=== PATIENT | male | born 1990 | race Caucasian/White ===

== ENCOUNTER 2017-10-13 11:45 | Emergency (ER) | payer BC ==
[2017-10-13 12:15] VITALS: BP 141/94
--- NOTE | 2017-10-13 12:28 | UC ---
Throat Pain/Nasal Feliciano HPI - HPI Summary HPI Summary: Pt presents with feeling feverish, dry cough, and sore throat for the last 4 days. Says today is feeling better than the past 4 days, but still wanted to get checked out. Has not been taking anything OTC for his symptoms. Denies sinus symptoms, SOB, chest pain, abdominal pain, n/v/d/c. Still smoking daily. - History of Current Complaint Chief Complaint: UCRespiratory Stated Complaint: URI Time Seen by Provider: 10/13/17 12:27 Hx Obtained From: Patient Onset/Duration: Gradual Onset Severity: Mild Pain Intensity: 1 Pain Scale Used: 0-10 Numeric Cough: Nonproductive - Allergies/Home Medications Allergies/Adverse Reactions: Allergies Allergy/AdvReac Type Severity Reaction Status Date / Time ENVIRONMENTAL/SEASONAL Allergy CONGESTION, Uncoded 10/13/17 12:15 HAYFEVER SNEEZE, ITCHY EYES, SWELLING OF THROAT PMH/Surg Hx/FS Hx/Imm Hx Previously Healthy: Yes GI/ History: Gastroesophageal Reflux Psychological History: Anxiety, Depression Other History Of: Negative For: Anticoagulant Therapy - Surgical History Surgical History: Yes Surgery Procedure, Year, and Place: 2009 LEFT KNEE ARTHROSCOPIC SURGERY, [facility] – [place]. 2009 & 2013 EGD, [facility] [place] - Family History Known Family History: Positive: Other - allergies in his dad; no hx of migraine - Social History Occupation: Employed Full-time Lives: With Family Alcohol Use: Weekly Substance Use Type: Marijuana Substance Use Comment - Amount & Last Used: MARIJUANA DAILY Smoking Status (MU): Heavy Every Day Tobacco Smoker Type: Cigars Amount Used/How Often: EVERY OTHER DAY A CIGAR, cigarettes w/ drinking ETOH at times Length of Time of Smoking/Using Tobacco: 6 YEARS Have You Smoked in the Last Year: Yes When Did the Patient Quit Smoking/Using Tobacco: may 2015 Household Exposure Type: Cigarettes - Immunization History Most Recent Influenza Vaccination: never Most Recent Tetanus Shot: 2009 Review of Systems Constitutional: Fever Skin: Negative Eyes: Negative ENT: Sore Throat Respiratory: Cough Cardiovascular: Negative Gastrointestinal: Negative Musculoskeletal: Negative Neurological: Negative Psychological: Negative All Other Systems Reviewed And Are Negative: Yes Physical Exam - Summary Physical Exam Summary: GENERAL: NAD. WDWN. No pain distress. SKIN: No rashes, sores, ulcers, masses, lesions. HEENT: Head: AT/NC Eyes: Conjunctiva clear without inflammation or discharge. Ears: Hearing grossly normal. TMs intact, no bulging, erythema, or edema. Nose: Nasal mucosa pink and moist. NTTP maxillary and frontal sinus. Throat: Posterior oropharynx mild erythema. No tonsillar enlargement. No exudates. Uvula midline. No hoarse voice or muffled voice. NECK: Supple. Nontender. No lymphadenopathy. CHEST: Mild wheezing throughout. No r/r. No accessory muscle use. Breathing comfortably and in no distress. CV: RRR. Without m/r/g. Pulses intact. Brisk cap refill. NEURO: Alert. CN II-XII grossly intact. PSYCH: Age appropriate behavior. Triage Information Reviewed: Yes Vital Signs: Initial Vital Signs Temp 98.5 F 10/13/17 12:11 Pulse 75 10/13/17 12:11 Resp 18 10/13/17 12:11 BP 141/94 10/13/17 12:11 Pulse Ox 98 10/13/17 12:11 Throat Pain/Nasal Course/Dx - Course Course Of Treatment: POC influenza negative. Pt refused strep testing saying that he has had strep many times in the past and knows that this is "not strep" . Pharyngitis and bronchitis - albuterol and tessalon. - Differential Dx/Diagnosis Provider Diagnoses: Pharyngitis. Bronchitis Discharge - Discharge Plan Condition: Stable Disposition: HOME Prescriptions: Albuterol HFA INHALER* [Ventolin HFA Inhaler*] 1 - 2 puff INH Q6H PRN #1 mdi PRN Reason: Sob/Wheezing Benzonatate CAP* [Tessalon 100 MG CAP*] 100 mg PO TID PRN #15 cap PRN Reason: Cough Patient Education Materials: Acute Bronchitis (ED) Referrals: No Primary Care Phys,NOPCP [Primary Care Provider] - Additional Instructions: If you develop a fever, shortness of breath, chest pain, new or worsening symptoms - please call your PCP or go to the ED. Your blood pressure was high at todays visit. Please see your primary provider within 4 weeks for recheck and re-evaluation.
== END 2017-10-13 12:36 | disposition home or self-care (01) ==
LOC: UCEAST 11:45
DX: J02.9 Acute pharyngitis, unspecified (principal); J40 Bronchitis, not specified as acute or chronic; K21.9 Gastro-esophageal reflux disease without esophagitis; F41.9 Anxiety disorder, unspecified; F32.9 Major depressive disorder, single episode, unspecified; F17.290 Nicotine dependence, other tobacco product, uncomplicated
CPT/HCPCS: 87502; 99212; G0463

== ENCOUNTER 2018-06-10 13:20 | Emergency (ER) | payer BC ==
[2018-06-10] MEDS ORDERED: NS 0.9% 1000 ML* 1,000 ML IV ONE ×2 (13:44→14:10)
[2018-06-10] MEDS ORDERED: Al Hydrox/Mg Hydrox/Simet LIQ* 30 ML UDC PO ONE (14:10)
[2018-06-10] MEDS ORDERED: Lidocaine 2% VISCOUS* 15 ML UDC PO ONE (14:10)
--- NOTE | 2018-06-10 14:19 | ED ---
Abdominal Pain/Male - HPI Summary HPI Summary: This patient is a 27 year old M presenting to [facility] with a chief complaint of severe lower abd pain accompanied by lower back pain since two nights ago. The patient rates the pain 5/10 in severity. Patient reports fever, diaphoresis, weak, dizzy, lightheaded, and N/V/D. Patient denies bloody stool. Pt has not been on antibiotics recently. Pt reports that he has had about 15 episodes of diarrhea. PMHX GERD, Anxiety. SHX insurance executive. - History of Current Complaint Chief Complaint: EDAbdPain Stated Complaint: SEVERE ABD PAIN Time Seen by Provider: 06/10/18 13:41 Hx Obtained From: Patient Onset/Duration: Sudden Onset, Lasting Days Timing: Constant Severity Initially: Moderate Severity Currently: Moderate Pain Intensity: 5 Pain Scale Used: 0-10 Numeric Location: Epigastric Radiates: Yes Radiates to: Back - lower Alleviating Factor(s): Bowel Movement - temporary Associated Signs And Symptoms: Positive: Diaphoresis, Fever, Dizzy, Back Pain, Nausea, Vomiting, Diarrhea. Negative: Cough - Allergies/Home Medications Allergies/Adverse Reactions: Allergies Allergy/AdvReac Type Severity Reaction Status Date / Time ENVIRONMENTAL/SEASONAL Allergy CONGESTION, Uncoded 10/13/17 12:15 HAYFEVER SNEEZE, ITCHY EYES, SWELLING OF THROAT PMH/Surg Hx/FS Hx/Imm Hx Endocrine/Hematology History: Denies: Hx Anticoagulant Therapy, Hx Blood Disorders Cardiovascular History: Reports: Hx Hypertension - SLIGHTLY HIGH NO MEDS GI History: Reports: Hx Gastroesophageal Reflux Disease - ACID REFLUX CONTROL WITH MEDS - omeprazole Sensory History: Denies: Hx Contacts or Glasses, Hx Hearing Aid Opthamlomology History: Denies: Hx Contacts or Glasses Neurological History: Reports: Hx Headaches - 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 2013 [place], [facility] [place] Hx Anesthesia Reactions: No Infectious Disease History: No Infectious Disease History: Denies: Hx Clostridium Difficile, Hx of Known/Suspected MRSA, Hx Shingles, Hx Tuberculosis, Hx Known/Suspected VRE, Hx Known/Suspected VRSA, History Other Infectious Disease, Traveled Outside the [place] in Last 30 Days - Family History Known Family History: Positive: Other - allergies in his dad; no hx of migraine - Social History Occupation: Employed Full-time - insurance executive Alcohol Use: Weekly Substance Use Type: Reports: Marijuana Substance Use Comment - Amount & Last Used: MARIJUANA DAILY Smoking Status (MU): Heavy Every Day Tobacco Smoker Type: Cigars Amount Used/How Often: EVERY OTHER DAY A CIGAR, cigarettes w/ drinking ETOH at times Length of Time of Smoking/Using Tobacco: 6 YEARS Have You Smoked in the Last Year: Yes Review of Systems Positive: Fever, Skin Diaphoresis Positive: Abdominal Pain, Vomiting, Diarrhea, Nausea Negative: other - bloody stool Musculoskeletal: Other - lower back pain Neurological: Other - dizzy Positive: Weakness All Other Systems Reviewed And Are Negative: Yes Physical Exam - Summary Physical Exam Summary: Constitutional: Well-developed, Well-nourished, Alert. Skin: Warm, Dry HENT: Normocephalic; Atraumatic Eyes: Conjunctiva normal Neck: Musculoskeletal ROM normal neck. Cardio: Rhythm regular, rate normal, Heart sounds normal; Intact distal pulses; The pedal pulses are 2+ and symmetric. Radial pulses are 2+ and symmetric. Pulmonary/Chest wall: Effort normal. Abd: Soft Neuro: Alert, Oriented x3 Psych: Mood and affect Normal Triage Information Reviewed: Yes Vital Signs On Initial Exam: Initial Vitals Temp Pulse Resp BP Pulse Ox 98.1 F 105 18 150/81 96 06/10/18 13:25 06/10/18 13:25 06/10/18 13:25 06/10/18 13:25 06/10/18 13:25 Vital Signs Reviewed: Yes Diagnostics - Vital Signs Vital Signs Temp Pulse Resp BP Pulse Ox 06/10/18 13:25 98.1 F 105 18 150/81 96 - Laboratory Result Diagrams: 06/10/18 13:59 06/10/18 13:59 Lab Statement: Any lab studies that have been ordered have been reviewed, and results considered in the medical decision making process. Re-Evaluation - Re-Evaluation First Eval Re-Evaluation Time: 14:49 Comment: There is still mild RLQ tenderness so I am going to order a CT. Abdominal Pain Fem Course/Dx - Course Course Of Treatment: This patient is a 27 year old M presenting to [facility] with a chief complaint of severe lower abd pain accompanied by lower back pain since two nights ago. The patient rates the pain 5/10 in severity. Patient reports fever, diaphoresis, weak, dizzy, lightheaded, and N/V/D. Patient denies bloody stool. - Diagnoses Provider Diagnoses: Colitis Discharge - Sign-Out/Discharge Documenting (check all that apply): Patient Departure - Discharge Plan Condition: Critical Disposition: HOME Prescriptions: Ciprofloxacin TAB* [Cipro 500 MG TAB*] 500 mg PO BID #28 tab metroNIDAZOLE [Flagyl 500 MG TAB] 500 mg PO TID #42 tab Ondansetron ODT TAB* [Zofran 4 MG Odt TAB*] 4 mg PO Q8H PRN #12 tab.odt PRN Reason: Nausea oxyCODONE/Acetamin 5/325 MG* [Percocet 5/325 TAB*] 2 tab PO Q6H PRN #32 tab MDD 8 PRN Reason: Pain Scale 6-10 Patient Education Materials: Colitis (ED) Forms: *Work Release Referrals: Sessions Alaina TRUJILLO [Medical Doctor] - 2 Days - Billing Disposition and Condition Condition: CRITICAL Disposition: Home - Attestation Statements Document Initiated by Scribe: Yes Documenting Scribe: Krishna Orourke Provider For Whom Scribe is Documenting (Include Credential): Reed Salcedo MD Scribe Attestation: Krishna Lopez scribed for Reed Salcedo MD on 06/10/18 at 1744. Scribe Documentation Reviewed: Yes Provider Attestation: The documentation as recorded by the Krishna lindo accurately reflects the service I personally performed and the decisions made by , Reed Salcedo MD
[2018-06-10 14:21] LABS: Hematocrit 46 % (42-52); Hemoglobin 15.5 g/dl (14.0-18.0); Mean Corpuscular HGB Conc 34 g/dl (31-36); Mean Corpuscular Hemoglobin 29 pg (27-31); Mean Corpuscular Volume 86 fL (80-94); Mean Platelet Volume 9.1 fL (7.4-10.4); Platelet Count 203 10^3/ul (150-450); Red Blood Count 5.36 10^6/ul (4.00-5.40); Red Cell Distribution Width 14 % (10.5-15); White Blood Count 15.3 10^3/ul (3.5-10.8)
[2018-06-10 14:32] LABS: EGFR Non-African American 106.1 (>60)
[2018-06-10 15:34] LABS: Urine Appearance Clear; Urine Blood 2+ (Negative); Urine Color Yellow; Urine Ketones Negative (Negative); Urine Protein Negative (Negative); Urine Red Blood Cell Trace(0-2/hpf) (Absent); Urine Specific Gravity 1.009 (1.010-1.030); Urine Urobilinogen Negative (Negative); Urine White Blood Cell Trace(0-5/hpf) (Absent)
[2018-06-10 16:05] LABS: ABS Basophils 0 10^3/ul (0-0.2); ABS Eosinophils 0 10^3/ul (0-0.6); ABS Lymphocytes 0.9 10^3/ul (1.0-4.8); ABS Monocytes 1.2 10^3/ul (0-0.8); ABS Neutrophils 12.8 10^3/ul (1.5-7.7); ABS Nucleated RBC 0 10^3/ul; Eosinophil % 0.1 % (0-6); Lymphocyte % 6.4 % (25-47); Nucleated Red Blood Cells % 0
[2018-06-10] MEDS ORDERED: Iohexol 300* (CONTRAST) 10 ML SDV IV ONE (16:41)
[2018-06-10 18:09] VITALS: BP 138/72
--- NOTE | 2018-06-12 18:56 | ED ---
Progress - Progress Note Progress Note: Patient's final stool culture reveals campylobacter jejuni. Patient was started on ciprofloxacin 500 mg twice a day along with Flagyl 500 mg 3 times a day. Recommendation for Campylobacter treatment is ciprofloxacin 750 mg twice a day for 3 days or until symptoms resolve. Discussed with patient who agrees to cut his 500 mg pills in half to equal 750 mg per dose and will take these BID until follow-up with PCP this week or until symptoms resolve. He does agree to keep his follow-up with PCP this week. He is also aware of danger signs and symptoms of when to return the emergency department. He does report his abdominal pain diarrhea and appetite are all improving since starting his medications. He will also stop the Flagyl as this is not recommended for this infection. Furthermore upon investigating his history of illness, he admits he did [place] prior to getting this infection and this is most likely where he sustained this organism. Re-Evaluation - Re-Evaluation First Eval Re-Evaluation Time: 14:49 Comment: There is still mild RLQ tenderness so I am going to order a CT. Course/Dx - Course Course Of Treatment: This patient is a 27 year old M presenting to [facility] with a chief complaint of severe lower abd pain accompanied by lower back pain since two nights ago. The patient rates the pain 5/10 in severity. Patient reports fever, diaphoresis, weak, dizzy, lightheaded, and N/V/D. Patient denies bloody stool. - Diagnoses Provider Diagnoses: Colitis Discharge - Sign-Out/Discharge Documenting (check all that apply): Post-Discharge Follow Up - Discharge Plan Condition: Critical Disposition: HOME Prescriptions: Ciprofloxacin TAB* [Cipro 500 MG TAB*] 500 mg PO BID #28 tab Ondansetron ODT TAB* [Zofran 4 MG Odt TAB*] 4 mg PO Q8H PRN #12 tab.odt PRN Reason: Nausea oxyCODONE/Acetamin 5/325 MG* [Percocet 5/325 TAB*] 2 tab PO Q6H PRN #32 tab MDD 8 PRN Reason: Pain Scale 6-10 Patient Education Materials: Colitis (ED) Forms: *Work Release Referrals: Sessions Alaina TRUJILLO [Medical Doctor] - 2 Days - Billing Disposition and Condition Condition: CRITICAL Disposition: Home
== END 2018-06-10 18:09 | disposition home or self-care (01) ==
LOC: ED 13:20
DX: K52.9 Noninfective gastroenteritis and colitis, unspecified (principal); M54.5 Low back pain; R42 Dizziness and giddiness; K21.9 Gastro-esophageal reflux disease without esophagitis; F41.9 Anxiety disorder, unspecified; F17.290 Nicotine dependence, other tobacco product, uncomplicated
CPT/HCPCS: 36415; 74177; 80053; 81003; 81015; 83605; 83690; 85025; 86140; 87045; 87046; 87077; 87086; 87493; 87899; 96360; 96361; 99282; A9270-GY; Q9967

== ENCOUNTER 2019-02-11 12:55 | Emergency (ER) | payer BC ==
[2019-02-11 13:07] VITALS: BP 143/96
--- NOTE | 2019-02-11 13:21 | UC ---
Minor Trauma HPI - HPI Summary HPI Summary: He was playing kickball 2 days ago and dove landing on his right side. Since that it's hurt on the right anterior part of the chest radiating into his back. It's aggravated by speaking or taking a deep breath. It's aggravated slightly by movement of his right arm or of his chest. - History of Current Complaint Chief Complaint: UCGeneralIllness Stated Complaint: CHEST/SHOULDER INJURY Time Seen by Provider: 02/11/19 13:12 Hx Obtained From: Patient Onset/Duration: Sudden Onset, Lasting Days Onset Of Pain: Immediate Severity Initially: Moderate Severity Currently: Moderate Pain Intensity: 9 Mechanism Of Injury: Blunt Trauma Aggravating Factor(s): Coughing, Deep Breaths, Other: - Talking - Allergies/Home Medications Allergies/Adverse Reactions: Allergies Allergy/AdvReac Type Severity Reaction Status Date / Time ENVIRONMENTAL/SEASONAL Allergy CONGESTION, Uncoded 02/11/19 13:07 HAYFEVER SNEEZE, ITCHY EYES, SWELLING OF THROAT PMH/Surg Hx/FS Hx/Imm Hx Previously Healthy: Yes Other History Of: Negative For: Anticoagulant Therapy - Surgical History Surgical History: None Surgery Procedure, Year, and Place: 2009 LEFT KNEE ARTHROSCOPIC SURGERY, [facility] – [place]. 2009 & 2013 EGD, [facility] – [place] - Family History Known Family History: Positive: Other - allergies in his dad; no hx of migraine - Social History Alcohol Use: Weekly Substance Use Type: Marijuana Substance Use Comment - Amount & Last Used: MARIJUANA DAILY Smoking Status (MU): Former Smoker Type: Cigars Amount Used/How Often: EVERY OTHER DAY A CIGAR, cigarettes w/ drinking ETOH at times Length of Time of Smoking/Using Tobacco: 6 YEARS Have You Smoked in the Last Year: Yes When Did the Patient Quit Smoking/Using Tobacco: may 2015 Household Exposure Type: Cigarettes - Immunization History Most Recent Influenza Vaccination: never Most Recent Tetanus Shot: 2009 Review of Systems All Other Systems Reviewed And Are Negative: Yes Respiratory: Positive: Negative Cardiovascular: Positive: Negative Physical Exam - Summary Physical Exam Summary: Is nontoxic in appearance with stable vitals. Triage Information Reviewed: Yes Appearance: Well-Appearing, No Pain Distress Vital Signs: Initial Vital Signs Temp 98.0 F 02/11/19 13:03 Pulse 76 02/11/19 13:03 Resp 18 02/11/19 13:03 BP 143/96 02/11/19 13:03 Pulse Ox 100 02/11/19 13:03 Vital Signs Reviewed: Yes ENT Exam: Normal Neck: Positive: Supple Respiratory Exam: Normal, Other - Is mild tenderness to palpation in his left anterior chest Respiratory: Positive: Normal breath sounds Cardiovascular Exam: Normal Abdominal Exam: Normal, Other - Is nontender in the right upper quadrant Diagnostics - Radiology CXR Radiology Interpretation Completed By: Radiologist Summary of Radiographic Findings: No acute process Minor Trauma Course/Dx - Course Course Of Treatment: His exam was generally unremarkable and a chest x-ray was negative for any fractures or pulmonary injury. He is in a lot of pain and its likely soft tissue injury. I encouraged him to take ibuprofen around the clock and I'm giving him prescription for tramadol. I recommended he follow up if not improving as he may need further testing. - Differential Dx/Diagnosis Provider Diagnosis: Acute chest wall pain Discharge - Sign-Out/Discharge Documenting (check all that apply): Patient Departure All imaging exams completed and their final reports reviewed: Yes - Discharge Plan Condition: Stable Disposition: HOME Patient Education Materials: Chest Wall Pain (ED) Referrals: Session Glen HOOD [Primary Care Provider] - - Billing Disposition and Condition Condition: STABLE Disposition: Home
== END 2019-02-11 14:16 | disposition home or self-care (01) ==
LOC: UCEAST 12:55
DX: R07.89 Other chest pain (principal); Z87.891 Personal history of nicotine dependence
CPT/HCPCS: 71046; 99212; G0463

== ENCOUNTER 2019-07-30 09:25 | Emergency (ER) | payer BC ==
[2019-07-30 09:46] VITALS: BP 130/87
--- NOTE | 2019-07-30 10:01 | UC ---
Throat Pain/Nasal Feliciano HPI - HPI Summary HPI Summary: started 1 week ago woth sore throat, got a bit better over 2-3 days, then developed nasal congestion whihc has worsened, last pm he developed bilateral ea pain, R worse, this am his R eye was stuck shut and draining yellow "goo". eye is itchy/painful - History of Current Complaint Chief Complaint: UCGeneralIllness Stated Complaint: COUGH Time Seen by Provider: 07/30/19 09:48 Hx Obtained From: Patient Onset/Duration: Gradual Onset Severity: Moderate Pain Intensity: 7 Cough: None - none now Associated Signs & Symptoms: Positive: Sinus Discomfort, Nasal Discharge - Allergies/Home Medications Allergies/Adverse Reactions: Allergies Allergy/AdvReac Type Severity Reaction Status Date / Time ENVIRONMENTAL/SEASONAL Allergy CONGESTION, Uncoded 07/30/19 09:38 HAYFEVER SNEEZE, ITCHY EYES, SWELLING OF THROAT Home Medications: Home Medications ALPRAZolam TAB* [Xanax TAB*] 0.25 mg PO Q6H PRN 07/30/19 [History Confirmed ] PMH/Surg Hx/FS Hx/Imm Hx Previously Healthy: Yes GI/ History: Gastroesophageal Reflux Psychological History: Anxiety, Depression Other History Of: Negative For: Anticoagulant Therapy - Surgical History Surgical History: None Surgery Procedure, Year, and Place: 2009 LEFT KNEE ARTHROSCOPIC SURGERY, [facility] – [place]. deviated septum repair 2014 - Family History Known Family History: Positive: Other - allergies in his dad; no hx of migraine - Social History Occupation: Employed Full-time Lives: With Family Alcohol Use: Weekly Substance Use Type: Marijuana Substance Use Comment - Amount & Last Used: DAILY Smoking Status (MU): Smoker, Current Status Unknown Type: eCigarettes Amount Used/How Often: juul pod/ day Length of Time of Smoking/Using Tobacco: 6 YEARS Have You Smoked in the Last Year: Yes When Did the Patient Quit Smoking/Using Tobacco: may 2015 Household Exposure Type: Cigarettes - Immunization History Most Recent Influenza Vaccination: never Most Recent Tetanus Shot: 2009 Review of Systems All Other Systems Reviewed And Are Negative: Yes Constitutional: Positive: Negative Skin: Positive: Negative. Negative: Rash Eyes: Positive: Drainage, Eye Redness - R eye ENT: Positive: Sore Throat, Ear Ache, Sinus Congestion, Sinus Pain/Tenderness Respiratory: Positive: Negative Cardiovascular: Positive: Negative Gastrointestinal: Positive: Negative. Negative: Diarrhea, Nausea Neurological: Positive: Negative Psychological: Positive: Negative Is Patient Immunocompromised?: No Physical Exam Triage Information Reviewed: Yes Appearance: Well-Appearing, No Pain Distress, Well-Nourished Vital Signs: Initial Vital Signs Temp 97.9 F 07/30/19 09:40 Pulse 73 07/30/19 09:40 Resp 16 07/30/19 09:40 BP 130/87 07/30/19 09:40 Pulse Ox 100 07/30/19 09:40 Vital Signs Reviewed: Yes Eyes: Positive: Conjunctiva Inflamed, Discharge ENT: Positive: Pharyngeal erythema, Nasal congestion, Nasal drainage, TM dull, TM red - right TM worse than L Neck exam: Normal Neck: Positive: Supple, Nontender, No Lymphadenopathy Respiratory Exam: Normal Respiratory: Positive: Lungs clear - no cough on exam Cardiovascular Exam: Normal Cardiovascular: Positive: RRR Neurological Exam: Normal Neurological: Positive: Alert Psychological Exam: Normal Skin Exam: Normal Skin: Negative: Rashes Throat Pain/Nasal Course/Dx - Differential Dx/Diagnosis Differential Diagnosis/HQI/PQRI: Influenza, Otitis Media, Pharyngitis, Sinusitis , Tonsillitis, URI Provider Diagnosis: Sinusitis, Otitis media Discharge ED - Sign-Out/Discharge Documenting (check all that apply): Patient Departure All imaging exams completed and their final reports reviewed: No Studies - Discharge Plan Condition: Good Disposition: HOME Prescriptions: Amoxicillin/Clavulanate TAB* [Augmentin TAB 875*] 875 mg PO BID #20 tab Ofloxacin 0.3% (Eye Drop) [Ocuflox OPTH 0.3% (Eye Drop)] 2 drop RIGHT EYE Q4H 5 Days #1 btl Patient Education Materials: Sinusitis (ED), Ear Infection (ED) Referrals: Session Glen HOOD [Primary Care Provider] - 2 Days (if no better) Additional Instructions: drink plenty of fluids and rest start antibiotic and eye drops and use as prescribed use Afrin nasal decongestant spray for 3 days also use sudafed 60mg every 6 hours as needed for nasal congestion - Billing Disposition and Condition Condition: GOOD Disposition: Home - Attestation Statements Provider Attestation: I was available for consult. This patient was seen by the NANCY. The patient was not presented to, seen by, or examined by me. -Natalie
== END 2019-07-30 10:13 | disposition home or self-care (01) ==
LOC: UCEAST 09:25
DX: H66.93 Otitis media, unspecified, bilateral (principal); J32.9 Chronic sinusitis, unspecified; F41.9 Anxiety disorder, unspecified; F32.9 Major depressive disorder, single episode, unspecified; F17.290 Nicotine dependence, other tobacco product, uncomplicated; Z79.899 Other long term (current) drug therapy; Z91.09 Other allergy status, other than to drugs and biological substances
CPT/HCPCS: 99212; G0463